=== PATIENT | female | born 1985 ===

== ENCOUNTER 2022-10-21 07:02 | Day surgery (SDC) | payer OTHER ==
[~2022-10-21] VITALS: Ht 172.7 cm; Wt 87.1 kg
[2022-10-21] MEDS ORDERED: MORGIDOX100 MG PO (10:21)
[2022-10-21] MEDS ORDERED: NAPR500T14 PO (10:21)
== END 2022-10-21 12:40 | disposition home or self-care (01) ==
LOC: CIR.AMB 07:02
PROVIDERS: ATTEND Obstetrics & Gynecology
DX: Z30.2 Encounter for sterilization (principal); O02.1 Missed abortion; O72.2 Delayed and secondary postpartum hemorrhage; O02.0 Blighted ovum and nonhydatidiform mole; Z64.1 Problems related to multiparity; N92.5 Other specified irregular menstruation; I10 Essential (primary) hypertension; Z20.822 Contact with and (suspected) exposure to COVID-19